=== PATIENT | male | born 1970 | race Two or more races ===

== ENCOUNTER 2020-01-16 12:16 | Emergency (ER) | payer SELFPAY ==
[~2020-01-16] VITALS: Ht 170.2 cm; Wt 69.0 kg
[~2020-01-16 12:16] MED LIST: LIDOcaine 1% W/epiNEPHrine 1:100,000 20ml vial ONE
[2020-01-16 12:26] VITALS: BP 133/75
[2020-01-16] MEDS ORDERED: TETanus/Pertussis (Acell)/Diphther VAC/PF (Tdap-Adult) 0.5ml syringe IMVAC ONE (12:45)
[2020-01-16] MEDS ORDERED: DOXYCYCLINE 100MG CAPSULE PO STA (14:29)
[2020-01-16] MEDS ORDERED: DOXY100C76 PO (14:38)
== END 2020-01-16 15:12 | disposition home or self-care (01) ==
LOC: ER 12:16
DX: S51.811A Laceration without foreign body of right forearm, initial encounter (principal); Z88.0 Allergy status to penicillin; Z79.899 Other long term (current) drug therapy; W54.0XXA Bitten by dog, initial encounter; Y93.89 Activity, other specified; Y92.89 Other specified places as the place of occurrence of the external cause; Y99.8 Other external cause status
CPT/HCPCS: 12004; 12034; 90471; 90715; 99285